=== PATIENT | female | born 1965 | race Caucasian/White ===

== ENCOUNTER → 2020-08-28 | Outpatient (CLI) | payer OTHER ==
[2020-08-28 12:45] LABS: HEMOGLOBIN 14.4 gm/dl (12.3-15.3); RED BLOOD COUNT 4.72 M/UL (4.00-5.10); WHITE BLOOD COUNT 9.4 K/UL (4.5-11.0)
[2020-08-28 13:08] LABS: BUN/CREATININE RATIO 21 (0-10)
[2020-08-29 09:12] LABS: VITAMIN D, 25-HYDROXY 22.7 ng/mL (30.0-100.0)
[2020-08-29 10:13] LABS: THYROXINE (T4) 8.4 ug/dL (4.5-12.0)
[2020-08-29 15:13] LABS: ALDOLASE 4.2 U/L (3.3-10.3)
== END ==
LOC: LAB 11:35
PROVIDERS: Internal Medicine
DX: M25.50 Pain in unspecified joint (principal); R53.83 Other fatigue; G57.90 Unspecified mononeuropathy of unspecified lower limb; R70.0 Elevated erythrocyte sedimentation rate; M25.579 Pain in unspecified ankle and joints of unspecified foot; D89.89 Other specified disorders involving the immune mechanism, not elsewhere classified; M62.81 Muscle weakness (generalized); E55.9 Vitamin D deficiency, unspecified
CPT/HCPCS: 80053; 82085; 82550; 82607; 82728; 82746; 83520; 83540; 83550; 84436; 84443; 85025; 85045